=== PATIENT | female | born 1955 | race Caucasian/White ===

== ENCOUNTER → 2016-11-09 | Outpatient (CLI) | payer OTHER | LOC: FIMAGING 15:57 | DX: Z12.31 Encounter for screening mammogram for malignant neoplasm of breast (principal) | CPT/HCPCS: G0202 ==

== ENCOUNTER 2017-04-02 07:41 | Day surgery (SDC) | payer OTHER ==
[2017-04-02] MEDS ORDERED: FAMOTIDINE 20 MG TAB PO ONE (07:44)
[2017-04-02] MEDS ORDERED: DIAZEPAM 5 MG TAB PO ONE (07:44)
[2017-04-02] MEDS ORDERED: diphenhydrAMINE 25 MG CAP PO ONE ×2 (07:44→08:08)
[2017-04-02] MEDS ORDERED: ASPIRIN EC 325 MG TAB PO ONE ×2 (07:44→08:09)
[2017-04-02] MEDS ORDERED: NS 1,000 ML IV ONE (07:44)
--- NOTE | 2017-04-02 08:07 | CPEKG ---
Heart Rate: 72 RR Interval: 833 P-R Interval: 160 QRSD Interval: 88 QT Interval: 400 QTC Interval: 438 P [place]: 60 QRS [place]: 33 T Wave [place]: 45 EKG Severity - ABNORMAL ECG - EKG Impression: SINUS RHYTHM EKG Impression: MULTIFORM VENTRICULAR PREMATURE COMPLEXES EKG Impression: LOW VOLTAGE IN FRONTAL LEADS Electronically Signed By: Rey Menon 02-Apr-2017 11:22:29
[2017-04-02] MEDS ORDERED: FAMOTIDINE 20 MG TAB ONE (08:08)
[2017-04-02] MEDS ORDERED: DIAZEPAM 5 MG TAB ONE (08:09)
[2017-04-02 08:21] LABS: % IMMATURE GRANULYOCYTES 0.2 % (0.0-1.1); ABSOLUTE IMMATURE GRANULOCYTES 0.01 10^3/uL (0.00-0.10); ADD DIFF? NO; ADD MORPH? NO; ADD SCAN? NO; ATYPICAL LYMPHOCYTE FLAG 20 (0-99); FRAGMENT RBC FLAG 0 (0-99); HEMATOCRIT 43.7 % (38.0-47.0); HEMOGLOBIN 14.4 g/dL (12.6-16.3); LEFT SHIFT FLG 0 (0-99); LIPEMIA HEMOLYSIS FLAG 80 (0-99); MEAN CELL HEMOGLOBIN 28.9 pg (27.9-34.1); MEAN CELL VOLUME 87.8 fL (81.5-99.8); MEAN PLATELET VOLUME 9.8 fL (8.7-11.7); PLATELET CLUMPS FLAG 0 (0-99); PLATELET COUNT 239 10^3/uL (150-400); RED BLOOD CELL COUNT 4.98 10^6/uL (4.18-5.33); RED CELL DISTRIBUTION WIDTH 12.5 % (11.5-15.2)
[2017-04-02 08:32] LABS: INR 0.91 (0.83-1.16); PROTIME(PATIENT) 12.2 SEC (12.0-15.0)
[2017-04-02 08:51] LABS: ANION GAP 12 mEq/L (8-16); CARBON DIOXIDE 21 mEq/l (22-31); CHLORIDE 106 mEq/L (97-110); CHOLESTEROL 170 mg/dL (140-220); CHOLESTEROL/HDL RATIO 2.27 RATIO (1.00-4.44); CREATININE 0.8 mg/dL (0.6-1.0); GLOMERULAR FILTRATION RATE > 60; GLUCOSE 91 mg/dL (70-100); HIGH DENSITY LIPOPROTEIN 75 mg/dL (40-85); LDL/HDL RATIO 1.09 RATIO (1.00-3.22); LOW DENSITY LIPOPROTEIN 82 mg/dL (80-100); MAGNESIUM 2.1 mg/dL (1.6-2.3); NON-HIGH DENSITY LIPOPROTEIN 95 mg/dL (90-129); POTASSIUM 4.3 mEq/L (3.5-5.2); SODIUM 139 mEq/L (134-144); TRIGLYCERIDE 65 mg/dL (35-135); VERY LOW DENSITY LIPOPROTEINS 13 mg/dL (8-25)
[2017-04-02] MEDS ORDERED: LIDOCAINE 1% 300 MG/30 ML SDV ONE (09:14)
[2017-04-02] MEDS ORDERED: fentaNYL 100 MCG/2 ML INJ ONE (09:14)
[2017-04-02] MEDS ORDERED: IOPAMIDOL (ISOVUE-370) 150 ML BTL IV ONE (09:14)
[2017-04-02] MEDS ORDERED: MIDAZOLAM 2 MG/2 ML VIAL ONE (09:14)
[2017-04-02] MEDS ORDERED: HEPARIN 10,000 UNIT/10 ML MDV ONE (09:14)
[2017-04-02] MEDS ORDERED: VERAPAMIL 5 MG/2 ML VIAL ONE (09:14)
--- NOTE | 2017-04-02 09:31 | PDPROPOC ---
Sedation Plan of Care Sedation Plan of Care: vital signs stable, mental status noted ASA Classification: ASA 2 Planned drugs: fentanyl, midazolam Mallampati Score: Class 2 Mallampati Reference Image: Patient passed 3-3-2 rule?: Yes
--- NOTE | 2017-04-02 09:32 | PDHPUP ---
History & Physical Update H&P update statement: This history and physical update is based on an assessment of the patient which was completed after admission or registration (within 24 hours), but prior to the surgery/procedure. H&P update: H&P reviewed & patient examined, no change in patient's condition since H&P completed
--- NOTE | 2017-04-02 10:59 | POSTOPPROG ---
Post Op Note Date of Operation: 04/02/17 Surgeon: Mary Nesbitt Anesthesia: IV Sedation Pre-op Diagnosis: abnormal stress test, PVCs Post-op Diagnosis: normal coronary arteries. low normal LVEF Indication: abnormal stress test Procedure: LHC, cor angio, LV gram Findings: normal coronary arteries Inf/Abcess present in the surg proc area at time of surgery?: No EBL: Minimal Total fluids administered: 200 cc NS Complications: none Specimen(s): none
[2017-04-02] MEDS ORDERED: METOPROLOL SUCCINATE XR 25 MG TAB PO SCH (11:00)
[2017-04-02] MEDS ORDERED: ATROPINE SULFATE 1 MG/10 ML SYR IVP PRN (11:00)
[2017-04-02] MEDS ORDERED: OXYCODONE/APAP 5/325 TAB PO PRN (11:00)
[2017-04-02] MEDS ORDERED: HYDROCODONE/APAP 5/325 TAB PO PRN (11:00)
[2017-04-02] MEDS ORDERED: NITROGLYCERIN 0.4 MG BTL SL PRN (11:00)
[2017-04-02] MEDS ORDERED: ONDANSETRON 4 MG/2 ML VIAL IVP PRN (11:00)
--- NOTE | 2017-04-02 21:06 | CPIP ---
[f rep st] INVASIVE CARDIAC PROCEDURE DATE OF PROCEDURE: 04/02/2017 PROCEDURE: 1. Left heart catheterization. 2. Coronary angiography. 3. Left ventriculography. INDICATIONS: Moderate risk stress test, frequent ventricular ectopy, exertional intolerance. COMPLICATIONS: None. DESCRIPTION OF PROCEDURE: NPO status was confirmed, informed consent obtained, and timeout performed . The patient was brought to the catheterization laboratory and prepped and draped in sterile fashio n. Adequate conscious sedation was achieved with Versed and fentanyl IV. 1% lidocaine was used for local anesthesia in the right femoral area. Using a modified Seldinger technique, a 6-[place] introdu cer sheath was placed in the right common femoral artery. A Taz right catheter was used for rig ht coronary angiography, and a JL4 catheter was used for left coronary angiography. A pigtail cathet er was used for left ventriculography. FINDINGS: 1. The left main is normal and bifurcates into the LAD and left circumflex system. 2. The LAD is a medium-sized vessel with 2 principal diagonals. There is no significant disease in the LAD or its branches. 3. The left circumflex has 1 large obtuse marginal branch, without significant disease. 4. The right coronary artery is . There is no coronary disease in this vessel. LEFT VENTRICULOGRAPHY: Left ventricular ejection fraction is low normal at about 55%. There is bord mc global hypokinesis with perhaps slightly more hypokinesis at the apex. HEMODYNAMICS: LV pressure is 124/0, with an end-diastolic pressure of 18, aortic pressure 127/65. T here is no significant gradient upon pullback from the left ventricle into the aorta, indicating no s ignificant aortic stenosis. CONCLUSIONS: 1. Normal coronary arteries in this dominant system. 2. Low-normal ejection fraction that may be related to the patient's history of frequent PVCs. 3. The patient's right femoral arteriotomy site was closed with an Angio-Seal device. She was taken to [facility] in stable condition. 4. The results discussed with Dr. So, the patient and her . Consider adding low-dose beta petey for PVCs. She may be discharged home once bedrest protocol is complete. /[id number]/MODL
== END 2017-04-02 13:58 | disposition home or self-care (01) ==
LOC: FCATH 07:41
PROVIDERS: ATTEND Internal Medicine Cardiovascular Disease
PROC: B2151ZZ Fluoroscopy of Left Heart using Low Osmolar Contrast (ICD-10-PCS; principal; 2017-04-02)
PROC: 4A023N7 Measurement of Cardiac Sampling and Pressure, Left Heart, Percutaneous Approach (ICD-10-PCS; principal; 2017-04-02)
DX: R94.39 Abnormal result of other cardiovascular function study (principal); R06.09 Other forms of dyspnea; Z87.891 Personal history of nicotine dependence
CPT/HCPCS: C1760; J1644; J2250; J3010; Q9967

== ENCOUNTER → 2017-11-13 | Outpatient (CLI) | payer OTHER | LOC: FIMAGING 10:22 | PROVIDERS: ATTEND Family Medicine | DX: Z12.31 Encounter for screening mammogram for malignant neoplasm of breast (principal) ==

== ENCOUNTER → 2018-11-19 | Outpatient (CLI) | payer OTHER | LOC: FIMAGING 10:31 | PROVIDERS: ATTEND Family Medicine | DX: Z12.31 Encounter for screening mammogram for malignant neoplasm of breast (principal) ==